=== PATIENT | female | born 1930 | race Caucasian/White ===

== ENCOUNTER → 2016-12-19 | Outpatient (CLI) | payer BC ==
[~2016-12-19] MED LIST: ASTN NAE; CALC500C3 PO; CHOL1000 PO; CHOL100010 PO; DYZ PO; FLUO0.0566 TOP; LDXO60 TOP; MAGN250T8 PO; MISCCAP80 PO; MXRAIN INH; MXZC25 PO; RANI1TAB77 PO
[2016-12-19 10:50] LABS: ALT/SGPT 23 U/L (12-78); AST/SGOT 22 U/L (15-37); BLOOD UREA NITROGEN 18 mg/dl (7-18); BUN/CREATININE RATIO 23.8 (10-20); CALCIUM 9.2 mg/dl (8.5-10.1); CARBON DIOXIDE 29 mmol/L (21-32); CHLORIDE 104 mmol/L (98-107); CHOLESTEROL 249 mg/dl (0-200); CREATININE 0.74 mg/dl (0.60-1.20); GLUCOSE 95 mg/dl (70-99); POTASSIUM 4.1 mmol/L (3.5-5.1); SODIUM 140 mmol/L (136-145); TRIGLYCERIDES 209 mg/dl (0-150); VERY LOW DENSITY LIPOPROT CALC 42 mg/dl
[2016-12-19 10:52] LABS: ALKALINE PHOSPHATASE 89 U/L (45-117); HDL CHOLESTEROL 63 mg/dl; LDL CHOLESTEROL CALCULATED 144 mg/dl
== END | disposition home or self-care (01) ==
LOC: C.LABFOXMH 09:00
PROVIDERS: ATTEND Internal Medicine
DX: I10 Essential (primary) hypertension (principal)

== ENCOUNTER 2017-01-02 08:30 | Emergency (ER) | payer BC ==
[~2017-01-02] VITALS: Ht 152.4 cm; Wt 60.7 kg
[~2017-01-02 08:30] MED LIST changes: -CHOL1000 PO; -FLUO0.0566 TOP; -LDXO60 TOP; -MXZC25 PO
[2017-01-02 08:32] VITALS: TEMP 36.4; Ht 152.4 cm; Wt 60.7 kg
--- NOTE | 2017-01-02 09:11 | EMERGENCY ROOM VISIT NOTE ---
History First contact with patient: 08:37 Chief Complaint: ED VAG BLEEDING Stated Complaint: NIGHT GOWN FULL OF BLOOD OVERNIGHT History of Present Illness The patient is a 86 year old female who presents to the Emergency Room with complaints of bleeding. The patient states that she woke this morning and had brownish red blood in her nightgown. She believes it is coming from her bladder. The patient states she is otherwise asymptomatic. She denies any fever, earache, sore throat or cough. She denies any pain in her chest or trouble breathing. She denies any abdominal pain, nausea, vomiting or diarrhea. She denies any hematemesis, hematochezia or melena. The patient has a history of hernia repair. The patient is a female. She is postmenopausal. Her last colonoscopy was 5 years ago. She denies any history of similar. Review of Systems A 10 system review of systems was completed with positives and pertinent negatives listed in the HPI. Past Medical/Surgical History Medical Problems: (1) Benign hypertension (2) Gastroesophageal reflux disease (3) Nasal septoplasty (4) Osteopenia (5) Ventral hernia, recurrent Social History Smoking Status: Never Smoker Alcohol Use: none Drug Use: none Marital Status: Housing Status: lives with family Occupation Status: unemployed Current/Historical Medications Scheduled Cholecalciferol (Vitamin D3), 1,000 UNITS PO DAILY Fluocinonide (Lidex 0.05% Oint), 1 APPL TOP BID Ranitidine HCl (Ranitidine [address]), 150 MG PO BID Triamterene/Hctz (Triamterene/Hctz 37.5-25MG Tab), 1 TAB PO Q2D Allergies Coded Allergies: Aminoglycosides (Unverified Allergy, Mild, RASH, 01/23/16) Bacitracin (Unverified Allergy, Mild, RASH, 01/23/16) Neomycin (Unverified Allergy, Mild, RASH, 01/23/16) Penicillins (Unverified Allergy, Mild, PT NOT SURE, 01/23/16) Polymyxin B (Unverified Allergy, Mild, RASH, 01/23/16) Ampicillin (Verified Allergy, Unknown, CHOKIING, 01/23/16) Antihistamines, Loratadine-type (Verified Allergy, Unknown, UNKNOWN, ) Biphosphate (Verified Allergy, Unknown, UNKNOWN, 01/23/16) Calcitonin (Verified Allergy, Unknown, UNKNOWN, 01/23/16) Fish Oil (Verified Allergy, Unknown, UNKNOWN, 01/23/16) Lactose (Verified Allergy, Unknown, G I UPSET, 01/23/16) Meloxicam (Verified Allergy, Unknown, UNKNOWN, 01/23/16) Metronidazole (Verified Allergy, Unknown, UNKNOWN, 01/23/16) Quinolones (Verified Allergy, Unknown, UNKNOWN, 01/23/16) Unclassified Drugs (Verified Allergy, Unknown, HRT NATURAL LOTION; NOT SURE OF RXN, 01/23/16) Fexofenadine (Verified Adverse Reaction, Unknown, UNABLE TO SLEEP/white stools, 01/23/16) Loratadine (Verified Adverse Reaction, Unknown, insomnia, 01/23/16) Physical Exam Vital Signs Date Time Temp Pulse Resp B/P Pulse Ox O2 Delivery O2 Flow Rate FiO2 01/02/17 12:19 74 18 141/62 98 01/02/17 11:35 72 16 143/71 99 Room Air 01/02/17 10:31 72 16 175/86 99 01/02/17 08:32 36.4 88 18 192/92 98 Room Air Physical Exam VITALS: Vitals are noted on the nurse's note and reviewed by myself. Vital signs stable. The patient is afebrile. GENERAL: This is an 86-year-old female, in no acute distress, nondiaphoretic, well-developed well-nourished. SKIN: The skin was without rashes, erythema, edema, or bruising. There is no tenting of the skin. Capillary reflex less than 2 seconds. HEAD: Normocephalic atraumatic. EARS: The external ears are normal in appearance. EYES: Pupils equal round and reactive to light and accommodation. Conjunctivae without injection, sclerae without icterus. Extraocular movements intact. NOSE: Patent, turbinates without inflammation or discharge. MOUTH: Mucous membranes moist. Tonsils are not enlarged. Pharynx without erythema or exudate. Uvula midline. Airway patent. Tongue does not deviate. NECK: Supple without nuchal rigidity. Cervical spine is nontender. No JVD. HEART: Regular rate and rhythm without murmurs gallops or rubs. LUNGS: Clear to auscultation bilaterally without wheezes, rales or rhonchi. No retractions or accessory muscle use. ABDOMEN: Positive bowel sounds x 4. Soft, nontender, without masses or organomegaly. RECTAL: There are no hemorrhoids present. The stool is brown and guaiac negative. : The external genitalia is normal in appearance. There is no obvious cervicitis. There is a very small amount of blood coming from the cervical os. The cervical os is closed. There is no obvious adnexal mass or tenderness. MUSCULOSKELETAL: No muscle atrophy, erythema, or edema noted. Full range of motion in all extremities. Normal gait. Strength 5/5 throughout. NEURO: Patient was alert and oriented to person place and time. No focal neurological deficits. Medical Decision & Procedures ER Provider Diagnostic Interpretation: [~ rep ct add3]] PELVIC ULTRASOUND, TRANSABDOMINAL AND TRANSVAGINAL HISTORY: vaginal bleeding COMPARISON: Abdomen and pelvis CT 04/23/2015. FINDINGS: Uterus: 7.2 x 3.9 x 2.4 cm. 9 mm calcification along the right side of the uterus. This favors a fibroid. Endometrial stripe: Thickened up to 1 cm. Right ovary: Obscured by overlying bowel gas. Left ovary: Obscured by overlying bowel gas. Miscellaneous:No pelvic free fluid. IMPRESSION: 1. The endometrial stripe measures up to 1 mm in thickness. This is considered abnormal in a postmenopausal female. Gynecologic consultation is recommended to exclude an underlying endometrial lesion. 2. The ovaries were obscured by overlying bowel gas. Laboratory Results 01/02/17 09:20 Red Blood Count 4.69, Mean Corpuscular Volume 86.4, Mean Corpuscular Hemoglobin 30.5, Mean Corpuscular Hemoglobin Concent 35.3, Mean Platelet Volume 10.3, Neutrophils (%) (Auto) 70.5, Lymphocytes (%) (Auto) 22.3, Monocytes (%) (Auto) 3.7, Eosinophils (%) (Auto) 1.6, Basophils (%) (Auto) 1.4, Neutrophils # (Auto) 4.55, Lymphocytes # (Auto) 1.44, Monocytes # (Auto) 0.24, Eosinophils # (Auto) 0.10, Basophils # (Auto) 0.09 01/02/17 09:20 Test 01/02/17 09:16 01/02/17 09:20 Urine Color YELLOW Urine Appearance CLEAR (CLEAR) Urine pH 6.5 (4.5-7.5) Urine Specific [place] 1.002 (1.000-1.030) Urine Protein 1+ (NEG) Urine Glucose (UA) NEG (NEG) Urine Ketones NEG (NEG) Urine Occult Blood 2+ (NEG) Urine Nitrite NEG (NEG) Urine Bilirubin NEG (NEG) Urine Urobilinogen NEG (NEG) Urine Leukocyte Esterase NEG (NEG) Urine WBC (Auto) 0 /hpf (0-5) Urine RBC (Auto) 5-10 /hpf (0-4) Urine Hyaline Casts (Auto) 0 /lpf (0-5) Urine Epithelial Cells (Auto) 0-5 /lpf (0-5) Urine Bacteria (Auto) NEG (NEG) White Blood Count 6.45 K/uL (4.8-10.8) Red Blood Count 4.69 M/uL (4.2-5.4) Hemoglobin 14.3 g/dL (12.0-16.0) Hematocrit 40.5 % (37-47) Mean Corpuscular Volume 86.4 fL (80-100) Mean Corpuscular Hemoglobin 30.5 pg (25-34) Mean Corpuscular Hemoglobin Concent 35.3 g/dl (32-36) Platelet Count 272 K/uL (130-400) Mean Platelet Volume 10.3 fL (7.4-10.4) Neutrophils (%) (Auto) 70.5 % Lymphocytes (%) (Auto) 22.3 % Monocytes (%) (Auto) 3.7 % Eosinophils (%) (Auto) 1.6 % Basophils (%) (Auto) 1.4 % Neutrophils # (Auto) 4.55 K/uL (1.4-6.5) Lymphocytes # (Auto) 1.44 K/uL (1.2-3.4) Monocytes # (Auto) 0.24 K/uL (0.11-0.59) Eosinophils # (Auto) 0.10 K/uL (0-0.5) Basophils # (Auto) 0.09 K/uL (0-0.2) RDW Standard Deviation 42.0 fL (36.4-46.3) RDW Coefficient of Variation 13.3 % (11.5-14.5) Immature Granulocyte % (Auto) 0.5 % Immature Granulocyte # (Auto) 0.03 K/uL (0.00-0.02) Prothrombin Time 10.7 SECONDS (9.0-12.0) Prothromb Time International Ratio 1.0 (0.9-1.1) Activated Partial Thromboplast Time 27.8 SECONDS (21.0-31.0) Partial Thromboplastin Ratio 1.1 Anion Gap 7.0 mmol/L (3-11) Est Creatinine Clear Calc Drug Dose 45.5 ml/min Estimated GFR () 84.8 Estimated GFR (Non- 73.2 BUN/Creatinine Ratio 20.4 (10-20) Calcium Level 9.8 mg/dl (8.5-10.1) Total Bilirubin 0.3 mg/dl (0.2-1) Aspartate Amino Transf (AST/SGOT) 18 U/L (15-37) Alanine Aminotransferase (ALT/SGPT) 24 U/L (12-78) Alkaline Phosphatase 101 U/L (45-117) Total Protein 7.9 gm/dl (6.4-8.2) Albumin 4.0 gm/dl (3.4-5.0) Globulin 3.9 gm/dl (2.5-4.0) Albumin/Globulin Ratio 1.0 (0.9-2) ED Course The patient was seen and examined. Previous visits were reviewed. The patient does not have a fever or leukocytosis. She is not anemic. She does not have any significant electrolyte abnormalities. INR is 1.0. Urinalysis reveals hematuria which the patient states is chronic for her. The patient presents with vaginal bleeding. There is a very small amount of bleeding and the patient was otherwise asymptomatic. She is hemodynamically stable. An ultrasound was obtained and reveals a thickened endometrium of 1 mm. I discussed the case with Dr. Sabillon. She suggests this may be atrophic and less likely to be cancer with an endometrial thickness of less than 4 mm. The patient should follow up with [facility]. The patient was advised of this. She should return with any worsening bleeding, pain, fevers. The patient was also seen and examined by who agrees with the assessment and treatment plan. Medical Decision DIFFERENTIAL DIAGNOSIS: Hepatitis, cholecystitis, cholangitis, biliary colic, pancreatitis, pneumonia, subdiaphragmatic abscess, appendicitis, inguinal hernia , nephrolithiasis, inflammatory bowel disease, mesenteric adenitis, peptic ulcer disease, GERD, gastritis, pancreatitis, myocardial infarction, pericarditis, ruptured aortic aneurysm, appendicitis, gastroenteritis, bowel obstruction, splenic infarct, diverticulitis, mesenteric ischemia, metabolic, neoplasm, GI bleeding, fibroid, peritonitis, among others. Impression Primary Impression: Vaginal bleeding Additional Impression: Atrophic vaginitis Departure Information Dispostion Home / Self-Care Condition GOOD Referrals Luisa Ennis (PCP) Madeline Sabillon MD Patient Instructions ED Bleed Irregular Vaginal, ED Vaginitis Atrophic, My [facility] Additional Instructions Contact [facility] to schedule a follow-up appointment You may continued to have spotting but if this persists longer than 6 months you will need another ultrasound and work up. Return with fever, worsening bleeding or generalized worsening symptoms Problem Qualifiers
[2017-01-02 09:32] LABS: BASO % 1.4 %; BASO ABS # 0.09 K/uL (0-0.2); COMPLETE YES; EOS % 1.6 %; HEMATOCRIT 40.5 % (37-47); IG% 0.5 %; LYMPH % 22.3 %; LYMPH ABS # 1.44 K/uL (1.2-3.4); MEAN CELL VOLUME 86.4 fL (80-100); MEAN CORPUSCULAR HEMOGLOBIN 30.5 pg (25-34); MEAN CORPUSCULAR HGB CONC 35.3 g/dl (32-36); MEAN PLATELET VOLUME 10.3 fL (7.4-10.4); MONO % 3.7 %; NEUT % 70.5 %; PLATELET COUNT 272 K/uL (130-400); RED BLOOD COUNT 4.69 M/uL (4.2-5.4); WHITE BLOOD COUNT 6.45 K/uL (4.8-10.8)
[2017-01-02 09:35] LABS: URINE APPEARANCE CLEAR (CLEAR); URINE BILIRUBIN NEG (NEG); URINE COLOR YELLOW; URINE EPITHELIAL CELL AUTO 0-5 /lpf (0-5); URINE NITRITE NEG (NEG); URINE PH 6.5 (4.5-7.5); URINE SPECIFIC GRAVITY 1.002 (1.000-1.030); UROBILINOGEN NEG (NEG); ZZURINE CULT IF INDIC CATH NO
[2017-01-02 09:38] LABS: MANUAL MICROSCOPIC REQUIRED? NO; REVIEW REQ? NO
[2017-01-02 09:42] LABS: PARTIAL THROMBOPLASTIN RATIO 1.1; PROTHROMBIN TIME (PATIENT) 10.7 SECONDS (9.0-12.0)
[2017-01-02 09:50] LABS: BUN/CREATININE RATIO 20.4 (10-20); CALCIUM 9.8 mg/dl (8.5-10.1); CREATININE 0.75 mg/dl (0.60-1.20); POTASSIUM 3.3 mmol/L (3.5-5.1)
[2017-01-02] MEDS ORDERED: CHOL1000 PO (10:13)
[2017-01-02] MEDS ORDERED: FLUO0.0566 TOP (10:13)
[2017-01-02] MEDS ORDERED: MXZC25 PO (10:13)
[2017-01-02] MEDS ORDERED: LDXO60 TOP (10:14)
--- NOTE | 2017-01-02 11:29 | DIAGNOSTIC IMAGING REPORT ---
PELVIC ULTRASOUND, TRANSABDOMINAL AND TRANSVAGINAL HISTORY: vaginal bleeding COMPARISON: Abdomen and pelvis CT 04/23/2015. FINDINGS: Uterus: 7.2 x 3.9 x 2.4 cm. 9 mm calcification along the right side of the uterus. This favors a fibroid. Endometrial stripe: Thickened up to 1 cm. Right ovary: Obscured by overlying bowel gas. Left ovary: Obscured by overlying bowel gas. Miscellaneous:No pelvic free fluid. IMPRESSION: 1. The endometrial stripe measures up to 1 mm in thickness. This is considered abnormal in a postmenopausal female. Gynecologic consultation is recommended to exclude an underlying endometrial lesion. 2. The ovaries were obscured by overlying bowel gas. Electronically signed by: John Oropeza M.D. 01/02/2017 11:27 AM Dictated Date/Time: 01/02/2017 11:25 AM
--- NOTE | 2017-01-02 12:02 | EMERGENCY ROOM VISIT NOTE ---
ED Visit Note First contact with patient: 08:37 I have seen and examined this patient with Esperanza Ruano and generally agree with the treatment plan as discussed. Problem List Medical Problems: (1) Benign hypertension Status: Chronic (2) Gastroesophageal reflux disease Status: Chronic (3) Nasal septoplasty Status: Chronic (4) Osteopenia Status: Chronic Current/Historical Medications Scheduled Cholecalciferol (Vitamin D3), 1,000 UNITS PO DAILY Fluocinonide (Lidex 0.05% Oint), 1 APPL TOP BID Ranitidine HCl (Ranitidine [address]), 150 MG PO BID Triamterene/Hctz (Triamterene/Hctz 37.5-25MG Tab), 1 TAB PO Q2D Allergies Coded Allergies: Aminoglycosides (Unverified Allergy, Mild, RASH, 01/23/16) Bacitracin (Unverified Allergy, Mild, RASH, 01/23/16) Neomycin (Unverified Allergy, Mild, RASH, 01/23/16) Penicillins (Unverified Allergy, Mild, PT NOT SURE, 01/23/16) Polymyxin B (Unverified Allergy, Mild, RASH, 01/23/16) Ampicillin (Verified Allergy, Unknown, CHOKIING, 01/23/16) Antihistamines, Loratadine-type (Verified Allergy, Unknown, UNKNOWN, ) Biphosphate (Verified Allergy, Unknown, UNKNOWN, 01/23/16) Calcitonin (Verified Allergy, Unknown, UNKNOWN, 01/23/16) Fish Oil (Verified Allergy, Unknown, UNKNOWN, 01/23/16) Lactose (Verified Allergy, Unknown, G I UPSET, 01/23/16) Meloxicam (Verified Allergy, Unknown, UNKNOWN, 01/23/16) Metronidazole (Verified Allergy, Unknown, UNKNOWN, 01/23/16) Quinolones (Verified Allergy, Unknown, UNKNOWN, 01/23/16) Unclassified Drugs (Verified Allergy, Unknown, HRT NATURAL LOTION; NOT SURE OF RXN, 01/23/16) Fexofenadine (Verified Adverse Reaction, Unknown, UNABLE TO SLEEP/white stools, 01/23/16) Loratadine (Verified Adverse Reaction, Unknown, insomnia, 01/23/16) Vital Signs Date Time Temp Pulse Resp B/P Pulse Ox O2 Delivery O2 Flow Rate FiO2 01/02/17 11:35 72 16 143/71 99 Room Air 01/02/17 10:31 72 16 175/86 99 01/02/17 08:32 36.4 88 18 192/92 98 Room Air Laboratory Results 01/02/17 09:20 Red Blood Count 4.69, Mean Corpuscular Volume 86.4, Mean Corpuscular Hemoglobin 30.5, Mean Corpuscular Hemoglobin Concent 35.3, Mean Platelet Volume 10.3, Neutrophils (%) (Auto) 70.5, Lymphocytes (%) (Auto) 22.3, Monocytes (%) (Auto) 3.7, Eosinophils (%) (Auto) 1.6, Basophils (%) (Auto) 1.4, Neutrophils # (Auto) 4.55, Lymphocytes # (Auto) 1.44, Monocytes # (Auto) 0.24, Eosinophils # (Auto) 0.10, Basophils # (Auto) 0.09 01/02/17 09:20 Test 01/02/17 09:16 01/02/17 09:20 Urine Color YELLOW Urine Appearance CLEAR (CLEAR) Urine pH 6.5 (4.5-7.5) Urine Specific [place] 1.002 (1.000-1.030) Urine Protein 1+ (NEG) Urine Glucose (UA) NEG (NEG) Urine Ketones NEG (NEG) Urine Occult Blood 2+ (NEG) Urine Nitrite NEG (NEG) Urine Bilirubin NEG (NEG) Urine Urobilinogen NEG (NEG) Urine Leukocyte Esterase NEG (NEG) Urine WBC (Auto) 0 /hpf (0-5) Urine RBC (Auto) 5-10 /hpf (0-4) Urine Hyaline Casts (Auto) 0 /lpf (0-5) Urine Epithelial Cells (Auto) 0-5 /lpf (0-5) Urine Bacteria (Auto) NEG (NEG) White Blood Count 6.45 K/uL (4.8-10.8) Red Blood Count 4.69 M/uL (4.2-5.4) Hemoglobin 14.3 g/dL (12.0-16.0) Hematocrit 40.5 % (37-47) Mean Corpuscular Volume 86.4 fL (80-100) Mean Corpuscular Hemoglobin 30.5 pg (25-34) Mean Corpuscular Hemoglobin Concent 35.3 g/dl (32-36) Platelet Count 272 K/uL (130-400) Mean Platelet Volume 10.3 fL (7.4-10.4) Neutrophils (%) (Auto) 70.5 % Lymphocytes (%) (Auto) 22.3 % Monocytes (%) (Auto) 3.7 % Eosinophils (%) (Auto) 1.6 % Basophils (%) (Auto) 1.4 % Neutrophils # (Auto) 4.55 K/uL (1.4-6.5) Lymphocytes # (Auto) 1.44 K/uL (1.2-3.4) Monocytes # (Auto) 0.24 K/uL (0.11-0.59) Eosinophils # (Auto) 0.10 K/uL (0-0.5) Basophils # (Auto) 0.09 K/uL (0-0.2) RDW Standard Deviation 42.0 fL (36.4-46.3) RDW Coefficient of Variation 13.3 % (11.5-14.5) Immature Granulocyte % (Auto) 0.5 % Immature Granulocyte # (Auto) 0.03 K/uL (0.00-0.02) Prothrombin Time 10.7 SECONDS (9.0-12.0) Prothromb Time International Ratio 1.0 (0.9-1.1) Activated Partial Thromboplast Time 27.8 SECONDS (21.0-31.0) Partial Thromboplastin Ratio 1.1 Anion Gap 7.0 mmol/L (3-11) Est Creatinine Clear Calc Drug Dose 45.5 ml/min Estimated GFR () 84.8 Estimated GFR (Non- 73.2 BUN/Creatinine Ratio 20.4 (10-20) Calcium Level 9.8 mg/dl (8.5-10.1) Total Bilirubin 0.3 mg/dl (0.2-1) Aspartate Amino Transf (AST/SGOT) 18 U/L (15-37) Alanine Aminotransferase (ALT/SGPT) 24 U/L (12-78) Alkaline Phosphatase 101 U/L (45-117) Total Protein 7.9 gm/dl (6.4-8.2) Albumin 4.0 gm/dl (3.4-5.0) Globulin 3.9 gm/dl (2.5-4.0) Albumin/Globulin Ratio 1.0 (0.9-2) Departure Information Referrals Luisa Ennis (PCP) Patient Instructions My [facility]
[2017-01-02 12:19] VITALS: BP 141/62; PULSE 74; O2SAT 98
== END 2017-01-02 12:20 | disposition home or self-care (01) ==
LOC: C.EDB 08:31
DX: N93.9 Abnormal uterine and vaginal bleeding, unspecified (principal); N95.2 Postmenopausal atrophic vaginitis; I10 Essential (primary) hypertension; K21.9 Gastro-esophageal reflux disease without esophagitis; Z79.899 Other long term (current) drug therapy; M85.80 Other specified disorders of bone density and structure, unspecified site

== ENCOUNTER → 2017-01-06 | Outpatient (CLI) | payer BC ==
[~2017-01-06] MED LIST changes: -ASTN NAE; -CALC500C3 PO; +CHOL1000 PO; -CHOL100010 PO; -DYZ PO; +LDXO60 TOP; -MAGN250T8 PO; -MISCCAP80 PO; -MXRAIN INH; +MXZC25 PO
== END | disposition home or self-care (01) ==
LOC: C.PATHSPEC 11:36
PROVIDERS: ATTEND Obstetrics & Gynecology
DX: C54.1 Malignant neoplasm of endometrium (principal)

== ENCOUNTER → 2017-01-20 | Outpatient (CLI) | payer BC ==
[2017-01-20 09:44] LABS: HEMATOCRIT 38.6 % (37-47); MEAN CELL VOLUME 87.1 fL (80-100); MEAN CORPUSCULAR HEMOGLOBIN 29.1 pg (25-34); MEAN CORPUSCULAR HGB CONC 33.4 g/dl (32-36); MEAN PLATELET VOLUME 10.3 fL (7.4-10.4); PLATELET COUNT 281 K/uL (130-400); RED BLOOD COUNT 4.43 M/uL (4.2-5.4); WHITE BLOOD COUNT 6.69 K/uL (4.8-10.8)
[2017-01-20 10:00] LABS: ALT/SGPT 23 U/L (12-78); BLOOD UREA NITROGEN 15 mg/dl (7-18); BUN/CREATININE RATIO 23.4 (10-20); CARBON DIOXIDE 27 mmol/L (21-32); CHLORIDE 105 mmol/L (98-107); CREATININE 0.64 mg/dl (0.60-1.20); GLUCOSE 85 mg/dl (70-99); POTASSIUM 3.7 mmol/L (3.5-5.1); SODIUM 140 mmol/L (136-145)
[2017-01-20 10:03] LABS: ALB/GLOB RATIO 0.9 (0.9-2); ALKALINE PHOSPHATASE 92 U/L (45-117); AST/SGOT 18 U/L (15-37)
== END ==
LOC: C.LABFOXMH 09:22
PROVIDERS: ATTEND Obstetrics & Gynecology Gynecologic Oncology
DX: Z01.818 Encounter for other preprocedural examination (principal); E87.6 Hypokalemia

== ENCOUNTER → 2017-01-22 | Outpatient (CLI) | payer BC ==
--- NOTE | 2017-01-22 10:20 | DIAGNOSTIC IMAGING REPORT ---
TWO VIEW CHEST CLINICAL HISTORY: Preoperative examination.. FINDINGS: PA and lateral chest radiographs are compared to study dated 09/01/2014 and correlated with chest CT dated 04/23/2015. The PA view is degraded by patient rotation. The cardiomediastinal silhouette is unremarkable. Chronic interstitial thickening is unchanged. The lungs and pleural spaces are clear. There is no pneumothorax. The skeletal structures are osteopenic. Degenerative changes noted throughout the thoracic spine. There are healed left-sided rib fractures A compression deformity is noted at the thoracolumbar junction. IMPRESSION: No active disease in the chest. Electronically signed by: Poncho Coelho M.D. 01/22/2017 10:19 AM Dictated Date/Time: 01/22/2017 10:17 AM
== END | disposition home or self-care (01) ==
LOC: C.RAD 09:38
PROVIDERS: ATTEND Obstetrics & Gynecology Gynecologic Oncology
DX: Z01.818 Encounter for other preprocedural examination (principal)

== ENCOUNTER → 2018-02-18 | Outpatient (CLI) | payer BC | LOC: C.LABFOXMH 12:47 | PROVIDERS: ATTEND Internal Medicine | DX: K43.2 Incisional hernia without obstruction or gangrene (principal) ==

== ENCOUNTER → 2018-03-18 | Outpatient (CLI) | payer BC ==
[2018-03-18 08:38] LABS: HEMATOCRIT 33.2 % (37-47); HEMOGLOBIN 11.3 g/dL (12.0-16.0); MEAN CELL VOLUME 87.8 fL (80-100); MEAN CORPUSCULAR HEMOGLOBIN 29.9 pg (25-34); MEAN PLATELET VOLUME 9.9 fL (7.4-10.4); PLATELET COUNT 426 K/uL (130-400); RED CELL DISTRIBUTION WIDTH SD 44.6 fL (36.4-46.3); WHITE BLOOD COUNT 10.02 K/uL (4.8-10.8)
[2018-03-18 08:46] LABS: BLOOD UREA NITROGEN 12 mg/dl (7-18); CALCIUM 9.5 mg/dl (8.5-10.1); CARBON DIOXIDE 27 mmol/L (21-32); CREATININE 0.86 mg/dl (0.60-1.20); GLUCOSE 108 mg/dl (70-99); SODIUM 137 mmol/L (136-145)
== END | disposition home or self-care (01) ==
LOC: C.LABFOXAE 08:10
PROVIDERS: ATTEND Internal Medicine
DX: D64.9 Anemia, unspecified (principal)